=== PATIENT | female | born 1960 | race Caucasian/White ===

== ENCOUNTER 2016-07-04 23:22 | Inpatient (IN) | payer OTHER ==
--- NOTE | ~2016-07-04 | CO ---
Unit #: [id number] #: [id number] Patient: ROSETTE CASTILLO [id number] [address] [address] [id number] I MR#: [id number] NAME: ROSETTE CASTILLO ROOM: 242 Age: 55 Sex: F Admission Date: 07/05/2016 : 1960 Attending Physician: Jyoti Johnson M.D. Primary Care Physician: Frank May M.D. Consultation Date: 07/08/2016 CONSULTATION REPORT REASON FOR CONSULT Acute kidney injury on probable chronic kidney disease. HISTORY OF PRESENT ILLNESS Ms. Castillo is a 55-year-old female who initially presented on 07/05/2016 with complaints of shortness of breath and leg swelling. The patient is currently being treated for COPD exacerbation and lower extremity cellulitis. There has also been some concern about congestive heart failure and she has been getting IV Lasix. We were asked to see for worsening kidney function. She is noted to be on vancomycin and Zosyn and again has been receiving IV Lasix. The patient did report some preadmission diarrhea that has gotten better since she has been here. Overall, she thinks her breathing is better. She is a smoker. She denies any preadmission NSAID use. No history of kidney stones. She was apparently out of her diabetic and blood pressure medicine for the last two years before being restarted here. No flank pain. She does complain of some mild dysuria. PAST MEDICAL HISTORY Significant for: 1. History of type 2 diabetes. 2. Hypertension. 3. Hyperlipidemia. 4. COPD. 5. Tobacco abuse. 6. Obstructive sleep apnea. 7. Hypothyroidism. 8. Mild coronary artery disease. 9. Restless leg syndrome. 10. Psoriasis. PAST SURGICAL HISTORY 1. Breast abscess. 2. Knee surgery. 3. . CURRENT MEDICATIONS 1. Tessalon Perles t.i.d. 2. Vancomycin per Pharmacy dosing. 3. Zoloft 50 mg h.s. 4. Trazodone 50 mg h.s. 5. Vistaril 25 mg t.i.d. 6. Lovenox 30 mg subcu daily. 7. Lasix 40 mg IV b.i.d. Unit #: [id number] #: [id number] Patient: ROSETTE ACSTILLO 8. Potassium chloride 20 mEq b.i.d. 9. DuoNeb inhaler. 10. Pulmicort inhaler. 11. Pepcid 20 mg daily. 12. Lac-Hydrin lotion. 13. Solu-Medrol 40 mg IV q.24 h. 14. Desenex topical. 15. Sliding scale insulin. 16. Zosyn 3.375 grams IV q.8 h. 17. And p.r.n.'s. ALLERGIES 1. Pyrazoles. 2. NSAIDs. 3. Propoxyphene. 4. Aspirin. 5. Salicylates. 6. Ibuprofen. 7. Latex. SOCIAL HISTORY She smokes at least one-half pack of cigarettes per day. She denies any alcohol abuse. She denies any drug use in the past. FAMILY HISTORY The patient says that her grandmother was born with one kidney but otherwise no family history of kidney disease or anyone requiring dialysis. REVIEW OF SYSTEMS A complete 12-point review of systems was completed with the above findings. In addition, she denies any headaches or dizziness. No nosebleeds, sore throat or earache. No chest pain or palpitations. Some cough, no hemoptysis. No nausea or vomiting but did have preadmission diarrhea. No bright red blood per rectum or melena. No hematuria. Her lower extremity swelling has improved. She does have a psoriasis rash. No flank pain. No night sweats or hot flashes. No intolerance to heat or cold. No bleeding issues. Unless otherwise indicated, the review of systems was negative. PHYSICAL EXAMINATION VITAL SIGNS: Afebrile, pulse 49, respiratory rate 17, blood pressure 112/43. I's and O's are negative by 7 liters. GENERAL: This is a pleasant 55-year-old female who is alert and oriented times 3 in no acute distress. HEENT: Head is atraumatic, normocephalic. Eyes show pink conjunctivae with no scleral icterus. No nasal drainage or nosebleed. Oropharynx is dry. She does have poor dentition. NECK: No rigidity, no JVD. HEART: Bradycardic and appears regular with no significant murmur or rub appreciated. LUNGS: Clear anteriorly with no wheezing or rhonchi today. Breathing is nonlabored. ABDOMEN: Soft, mild diffuse tenderness. There are bowel sounds present. No masses appreciated. EXTREMITIES: She does have trace to +1 lower extremity and foot edema that is showing some early wrinkling. No cyanosis. Skin is dry. She does have psoriatic changes. She does have erythema on the lower shins, Unit #: [id number] #: [id number] Patient: ROSETTE CASTILLO more so on the left than the right with tenderness and warmth. GENITOURINARY: Newton catheter is in place with nonbloody urine. MUSCULOSKELETAL: No CVA tenderness to palpation. NEUROLOGIC: Cranial nerves II-XII are grossly intact with some generalized weakness but no focal deficits. LYMPHATICS: There is no neck cervical lymphadenopathy. PSYCHIATRIC: Mood appears depressed. Affect is somewhat flat. DIAGNOSTIC STUDIES LABORATORY: Chemistry today sodium 135, potassium 4.7, chloride 92, bicarb 29, glucose 243, BUN 55, creatinine up to 2.3. Vancomycin level was 23.6. BNP just 90. CBC was noteworthy for hemoglobin of 10.2. No peripheral eosinophilia. Urinalysis done last night did show 10-25 wbc's with some hyaline casts. There was no protein or blood. Yesterday's chemistry noteworthy for a high potassium of 5.9. Procalcitonin on admission was just 0.08. Liver function tests were unremarkable with an albumin of 3.3. Blood cultures are negative thus far. Hemoglobin A1c 7.1. Admission creatinine was 1.5 with an albumin of 4.1. Review of old labs shows a creatinine of 1.1 from December 2013. Previous urinalyses here have some intermittent 1+ proteinuria with mostly negative tests for blood. I did find a CT scan of the abdomen and pelvis from September 2013 that showed unremarkable kidneys. IMAGING: Chest x-ray on admission showed clear lungs except for some granulomatous calcification. ASSESSMENT AND PLAN 1. Acute on probable chronic kidney disease stage 3. Patient may very well have had some progression of her kidney disease due to not taking any medications for the last few years. Fortunately, her hemoglobin A1c looks good at 7.1. We will hold off on any further imaging as she had a CT scan noted as above. Her acute kidney injury looks to be prerenal in nature from over-diuresis with Lasix which we will stop. She is also on some vancomycin which may be causing some issues and we will change her over to daptomycin. In addition, I will send off urine studies for eosinophils as she did have some wbc's in her urine and is noted to be on vancomycin and Zosyn. We will recheck labs in the morning after making these changes. 2. Hyperkalemia. We will be stopping her potassium chloride and it has improved since yesterday. 3. Edema. The patient is relatively immobile and I do think we need to check Dopplers which I will order. She says that her swelling is much better and she certainly diuresed over 7 liters just in the last 24 hours. With her worsening kidney function, we will hold her Lasix for the present time. I will check a TSH level. 4. Cellulitis. We will change her antibiotics to daptomycin and Zosyn and stop her vancomycin. 5. Type 2 diabetes with a decent hemoglobin A1c. 6. History of hypertension on no medications. 7. Questionable congestive heart failure. 2D echo just showed some abnormal diastolic dysfunction and normal function of all valves. With her BNP only being 90 and a clear chest x-ray, I think her breathing issues are more COPD related. 8. Chronic obstructive pulmonary disease with continued tobacco abuse. Unit #: [id number] #: [id number] Patient: ROSETTE CASTILLO 9. Psoriasis being followed by Dermatology. I would like to thank Dr. Jonas for this consult and the opportunity to participate in the evaluation of Ms. Castillo. Dictated by... Delonte Markham Jr., M.D. YEISON/earlene TD: 07/08/2016 21:34 JOB #: [id number] CONSULTATION REPORT Page 1 of 1 X Delonte Markham MD CONSULTATION REPORT
--- NOTE | ~2016-07-04 | CR72 ---
[facility] A Service of [facility] RADIOLOGY TEXT RESULTS PATIENT: ROSETTE CASTILLO LOCATION: [facility] 242-01 : 58 UNIT #: [id number] AGE: [address]: Jyoti Johnson MD SEX: F ORDER DR: [id number] [facility] [address] [facility]. [place], [place] [address] [id number] I MR#: [id number] Acc #: [id number] NAME: ROSETTE CASTILLO : 1960 SEX: F STUDY DATE/TIME: 07/05/2016 01:19 UNIT: CEDOF ROOM: 39624 STUDY DESCRIPTION: CR Chest Single View Portable Attending Physician: Jyoti Johnson M.D. Ordering Physician: Ed Doctor [id number] [facility] Primary Care Physician: Frank May M.D. MEDICAL IMAGING REPORT This report is preliminary unless electronic signature is present EXAM Portable chest 0119 hours INDICATIONS Cough, shortness of air and lower leg edema for 2 days. History of smoking. FINDINGS AP portable chest is compared with 10/17/2015. Cardiac and mediastinal contours are normal. Lungs are clear except for granulomatous calcification. No pneumothorax. IMPRESSION No active disease. Dictated by... Dennis Montaño Jr., M.D. THIS IS AN ELECTRONICALLY VERIFIED REPORT Dennis Montaño Jr., M.D. at 07/06/2016 5:52 AM ARTI/madeline TD: 07/05/2016 06:25 JOB #: [id number] MEDICAL IMAGING REPORT Page 1 of 1 COPY
--- NOTE | ~2016-07-04 | US84 ---
[id number] [facility] [address]. [place], [place] [address] [id number] I MR#: [id number] Acc #: [id number] NAME: ROSETTE CASTILLO : 1960 SEX: F STUDY DATE/TIME: 07/08/2016 15:48 UNIT: C2A ROOM: 242 STUDY DESCRIPTION: US LE Veins Complete Cm Stdy Attending Physician: Jyoti Johnson M.D. Ordering Physician: Delonte Markham Jr., M.D. Primary Care Physician: Frank May M.D. MEDICAL IMAGING REPORT This report is preliminary unless electronic signature is present EXAM Lower extremity ultrasound for DVT, 07/08/2016 INDICATIONS 55-year-old female with shortness of air and swelling of both lower extremities for a week. TECHNIQUE Lanier-scale color Doppler and spectral analysis of both lower extremities was performed. COMPARISON 11/26/2011 FINDINGS Examination is negative. No DVT in either lower extremity. IMPRESSION No DVT in either lower extremity. Dictated by... Zaid Ruiz M.D. THIS IS AN ELECTRONICALLY VERIFIED REPORT Zaid Ruiz M.D. at 07/08/2016 10:28 PM Nadir TD: 07/08/2016 19:54 JOB #: [id number] MEDICAL IMAGING REPORT Page 1 of 1 COPY
--- NOTE | ~2016-07-04 | EKG ---
PATIENT: ROSETTE CASTILLO UNIT #: [id number] Ventricular Rate: 91 BPM Atrial Rate: 91 BPM P-R Interval: 124 ms QRS Duration: 72 ms Q-T Interval: 372 ms QTC Calculation(Bezet): 457 ms P Alamo: 54 degrees Calculated R Alamo: 42 degrees Calculated T Alamo: 92 degrees Diagnosis Line: Normal sinus rhythm Diagnosis Line: T wave abnormality, consider anterior ischemia Diagnosis Line: Abnormal ECG Diagnosis Line: No previous ECGs available Diagnosis Line: Confirmed by SONALI SHETH MD ([id number]) on 07/07/2016 Diagnosis Line: 10:23:42 AM INTERPRETING MD: DOMENIC ALFORD
--- NOTE | ~2016-07-04 | HP ---
Unit #: [id number] #: [id number] Patient: ROSETTE CASTILLO 150517 [address] [address] [id number] I MR#: [id number] NAME: ROSETTE CASTILLO ROOM: 242 Age: 55 Sex: F Admission Date: 07/05/2016 : 1960 Attending Physician: Jyoti Johnson M.D. Primary Care Physician: Frank May M.D. HISTORY AND PHYSICAL ADMISSION DIAGNOSES 1. Acute exacerbation of chronic obstructive pulmonary disease. 2. Bilateral lower extremity cellulitis. 3. Diabetes. 4. Dyslipidemia. 5. Obstructive sleep apnea. 6. Psoriasis. 7. History of coronary artery disease. 8. Chronic kidney disease. HISTORY OF PRESENT ILLNESS Ms. Castillo is a 55-year-old female, patient of Dr. May, who comes to the emergency room with the complaints of increased shortness of air/dyspnea with some subjective fever and chills along with some yellowish sputum. The patient also complains of lower extremity swelling and erythema. Patient is the one with the multiple medical issues in the past including coronary artery disease, diabetes, dyslipidemia, hypertension, COPD, psoriasis, depression, anxiety and hypothyroidism in the past and also obstructive sleep apnea and obesity. Patient tells me that she also wants to go to a [facility] from this hospitalization secondary to being left at home frequently by her daughter who apparently has the ill children and has to travel to [place] frequently. Patient currently denies any other problems, denies any active chest pain, denies any headache or dizziness, denies any nausea, vomiting, diarrhea or abdominal pain, denies any dysuria symptoms, denies any syncopal episodes. REVIEW OF SYSTEMS A 12-point review of systems on this patient was basically negative except as above. PAST MEDICAL HISTORY Past medical history is significant for as above in HPI. PAST SURGICAL HISTORY Past surgical history is significant for: 1. I/D of the abscess in the right breast. 2. Right knee surgery. 3. . HOME MEDICATIONS Apparently she was not taking any medications secondary to losing the insurance recently but now she has Passport. Unit #: [id number] #: [id number] Patient: ROSETTE CASTILLO ALLERGIES From old chart the allergies include propoxyphene, salicylates, pyrazoles, NSAIDs, aspirin, latex and ibuprofen. SOCIAL HISTORY She has been an active smoker throughout her life, denies any alcohol or illicit drugs. FAMILY HISTORY Significant for diabetes. PHYSICAL EXAMINATION GENERAL: On the physical exam patient is a 55-year-old female not in acute distress. VITAL SIGNS: BP 121/45, heart rate 55, respirations 16, temperature 99. HEENT: Head is atraumatic. Pupils equal, round and reactive to light and accommodation. Extraocular muscles intact. Oropharynx clear. NECK: Supple. No mass. No JVD. No bruits. CHEST: Diminished bilaterally. CARDIOVASCULAR EXAM: S1, S2. No murmurs. ABDOMEN: Abdomen is soft, obese, nontender and nondistended. Bowel sounds are diminished. EXTREMITIES: Lower extremities with significant bilateral swelling with some pitting edema and erythema. SKIN: Skin is significant for patchy dermatitis consistent with her history of psoriasis. NEUROLOGIC: Neurologically the patient is alert and oriented and answering questions appropriately. No focal deficits. PSYCHIATRIC: She is anxious, in tears, requesting to go to a [facility] after the hospitalization. DIAGNOSTIC STUDIES LABORATORY: Chemistry significant for BUN and creatinine 31 and 1.5, blood glucose 195. Set of cardiac enzymes negative. White count 12,000 and hemoglobin and hematocrit 11.1 and 35. IMAGING: Chest x-ray on admission no active disease. ASSESSMENT AND PLAN 1. Acute exacerbation of chronic obstructive pulmonary disease: Start on DuoNeb, Pulmicort. Ask Pulmonology to see. 2. Bilateral lower extremity cellulitis: Will start on IV Zosyn and vancomycin, ask pharmacy to dose. 3. Diabetes, covered with low sliding scale: Check hemoglobin A1C. 4. History of dyslipidemia in the past. 5. Obstructive sleep apnea: Continue per Pulmonary. 6. Psoriasis: Will get Dr. Roman for evaluation. 7. History of coronary artery disease: Would start her on aspirin but I cannot do aspirin because she is allergic to it. Currently chest pain free, stable hemodynamics. Consider Cardiology evaluation. Set of cardiac enzymes negative. 8. Chronic kidney disease, looks like around the baseline. 9. GI and DVT prophylaxis: Start on Pepcid and continue Lovenox. Unit #: [id number] #: [id number] Patient: ROSETTE CASTILLO Dictated by Lou Santana/tianna TD: 07/05/2016 20:42 JOB #: [id number] HISTORY AND PHYSICAL Page 1 of 1 X Reginald Jonas MD HISTORY AND PHYSICAL
--- NOTE | ~2016-07-04 | DS ---
Unit #: [id number] #: [id number] Patient: ROSETTE CASTILLO [id number] [address] [address] [id number] I MR#: [id number] NAME: ROSETTE CASTILLO ROOM: 238 Age: 55 Sex: F Admission Date: 07/05/2016 : 1960 Discharge Date: 07/12/2016 Attending Physician: Jyoti Johnson M.D. Primary Care Physician: Frank May M.D. DISCHARGE SUMMARY DISCHARGE DIAGNOSES 1. Lower extremity cellulitis, status post completion of IV antibiotics for seven days. Afebrile, white count unremarkable. Stable to be discharged. 2. Acute exacerbation of chronic obstructive pulmonary disease, resolving, status post evaluation per Pulmonary. Stable. 3. Acute kidney injury on chronic kidney disease, status post evaluation per Nephrology. Stable. Okay to be discharged. 4. Diabetes. 5. Dyslipidemia. 6. History of psoriasis. 7. History of coronary artery disease. DISCHARGE MEDICATIONS 1. Combivent inhaler q.4 hours p.r.n. for shortness of air. 2. Pulmicort inhaler b.i.d. 3. Prednisone 20 mg daily. 4. Triamcinolone topically to the trunk and extremities p.r.n. 5. Tylenol p.r.n. 6. Hydrocortisone cream topically daily p.r.n. to the rash on the face. 7. Lovenox 30 mg subcutaneous daily. 8. Zoloft 50 mg p.o. at bedtime. 9. Desyrel 50 mg at bedtime. 10. Zofran 4 p.o. q.4 p.r.n. for nausea. 11. Desenex topically to bilateral breast folds b.i.d. 12. Tessalon Perles p.r.n. for cough. 13. Vistaril 25 mg p.o. t.i.d. 14. Ammonium lactate topically to the rash on the feet and ankles daily. 15. Sliding scale insulin. 16. Pepcid 20 mg daily. 17. [place]urtis 5/325 at 1 or 2 tablets q.4 hours p.r.n. for pain. DISPOSITION Going to [facility]. Follow up with Dr. Leach there. CONSULTS DURING THIS HOSPITAL STAY 1. Dr. Gates, Pulmonary. 2. Dr. Brooke, Psychiatry. 3. Dr. Markham, Nephrology. DIAGNOSTIC STUDIES LABORATORY: Blood culture negative. Urine culture negative. IMAGING: Chest x-ray unremarkable. Lower extremity ultrasound negative Unit #: [id number] #: [id number] Patient: ROSETTE CASTILLO for DVT. Renal ultrasound unremarkable. HISTORY OF PRESENT HOSPITAL STAY Please refer to History and Physical done by me for initial presentation on this female. ACTIVE PROBLEMS DIAGNOSED Lower extremity cellulitis. Patient was treated with IV Zosyn and daptomycin for seven days. Currently afebrile. Clinically erythema is resolved. Still has the lower extremity swelling, but this is chronic. Stable to be discharged. Acute exacerbation of COPD. Continue bronchodilators and continue p.o. steroids. Outpatient followup with Pulmonary. Acute kidney injury on chronic kidney disease, discharge date BUN and creatinine 66 and 2. Stable from kidney standpoint. Outpatient followup with Nephrology. Diabetes, covered with sliding scale. Dyslipidemia and history of coronary artery disease, stable. History of psoriasis. Continue topical management as above in discharge med rec. Depression, status post evaluation per Psychiatry. Continue current medications as above. Dictated by... Lou Santana/crystal TD: 07/12/2016 20:58 JOB #: [id number] DISCHARGE SUMMARY Page 1 of 1 X Reginald Jonas MD X DISCHARGE SUMMARY
--- NOTE | ~2016-07-04 | US77 ---
[facility] A Service of [facility] RADIOLOGY TEXT RESULTS PATIENT: ROSETTE CASTILLO LOCATION: [facility] 238 : 59 UNIT #: [id number] AGE: [address]: Jyoti Johnson MD SEX: F ORDER DR: [id number] [facility] [address] [facility]. [place], [place] [address] [id number] I MR#: [id number] Acc #: [id number] NAME: ROSETTE CASTILLO : 1960 SEX: F STUDY DATE/TIME: 07/11/2016 10:54 UNIT: A ROOM: 238 STUDY DESCRIPTION: US Kidney Bilateral Complete Attending Physician: Jyoti Johnson M.D. Ordering Physician: Delonte Markham Jr., M.D. Primary Care Physician: Frank May M.D. MEDICAL IMAGING REPORT This report is preliminary unless electronic signature is present EXAM Bilateral renal ultrasound Date: 07/11/2016 HISTORY Acute renal failure. BUN 70. Creatinine 2.1. GFR 25. COMPARISON Bilateral renal ultrasound 06/07/2014. FINDINGS The right kidney measures 8.4 x 4.1 x 3.9 cm. Left kidney measures 7.4 x 3.8 x 3.9 cm. Both kidneys maintain normal cortical thickness and cortical echotexture. No shadowing renal stone, hydronephrosis or hydroureter is seen. Urinary bladder is not visualized, as it is decompressed. IMPRESSION The left kidney is slightly smaller than the right but is similar appearance to the 2014 examination. Otherwise, the kidneys maintain normal cortical thickness and echotexture. No renal mass lesion, shadowing stone or hydronephrosis is seen. Urinary bladder is decompressed. Dictated by... Evelina Pena M.D. THIS IS AN ELECTRONICALLY VERIFIED REPORT [facility] A Service of [facility] RADIOLOGY TEXT RESULTS PATIENT: ROSETTE CASTILLO LOCATION: [facility] : 58 UNIT #: [id number] AGE: [address]: Jyoti Johnson MD SEX: F ORDER DR: Evelina Pena M.D. at 07/14/2016 8:30 AM JOSE/lilly TD: 07/11/2016 15:30 JOB #: [id number] MEDICAL IMAGING REPORT Page 1 of 1 COPY
--- NOTE | ~2016-07-04 | CO ---
Unit #: [id number] #: [id number] Patient: ROSETTE CASTILLO [id number] [facility] [address] [address] [id number] I MR#: [id number] NAME: ROSETTE CASTILLO ROOM: 238 Age: 55 Sex: F Admission Date: 07/05/2016 : 1960 Attending Physician: Jyoti Johnson M.D. Primary Care Physician: Frank May M.D. Consultation Date: 07/11/2016 CONSULTATION REPORT REASON FOR CONSULTATION Followup. DISCUSSION Ms. Rosette Castillo is a 55-year-old female seen in room 238, bed 1 on 07/11/16 at [facility]. Patient reported that she is feeling so-so. Patient sad and depressed. Flat affect, but denied any thoughts of harming self or others. Denied any psychotic symptoms. Compliant with medication. Patient is currently on Zoloft and Desyrel. No side effects from medication. Patient's vital signs: 98.6, 50, 20, 129/53, and oxygen saturation 96%. REVIEW OF SYSTEMS Complete review of systems unremarkable. MENTAL STATUS EXAMINATION VITAL SIGNS: Please see above. GENERAL APPEARANCE: Patient dressed casually. ATTENTION SPAN AND CONCENTRATION: Fair. SPEECH: Slow in short sentences. ORIENTATION: Oriented in place and person. MOOD AND AFFECT: Sad, depressed. THOUGHT PROCESS: Coherent. THOUGHT CONTENT: Patient denied any thoughts of harming self or others. Denied any psychotic symptoms. RECENT AND REMOTE MEMORY: Fair. LANGUAGE: Intact. FUND OF KNOWLEDGE: Fair. INSIGHT AND JUDGEMENT: Fair to slightly impaired. DIAGNOSES PSYCHIATRIC 1. Major depressive disorder, recurrent, moderate, F33.2. 2. Anxiety disorder, NOS, F40.01. ASSESSMENT/PLAN 1. Supportive psychotherapy and psychoeducation provided to patient. 2. Educated about benefits and side effects of medication and course and prognosis of illness. 3. At this time, continue with current medication, but we will continue to evaluate and make further adjustment of medication if needed. Please feel free to call if any questions. Telephone number . Unit #: [id number] #: [id number] Patient: ROSETTE CASTILLO Dictated by... Lou Monae TD: 07/12/2016 08:38 JOB #: [id number] CONSULTATION REPORT Page 1 of 1 X Bola Brooke MD CONSULTATION REPORT
--- NOTE | ~2016-07-04 | CO ---
Unit #: [id number] #: [id number] Patient: ROSETTE CASTILLO [id number] [place] [id number] [place] [address] [id number] I MR#: [id number] NAME: ROSETTE CASTILLO ROOM: 238 Age: 55 Sex: F Admission Date: 07/05/2016 : 1960 Attending Physician: Jyoti Johnson M.D. Primary Care Physician: Frank May M.D. Consultation Date: 07/12/2016 CONSULTATION REPORT REASON FOR CONSULTATION Followup. DISCUSSION Ms. Rosette Silva is a 55-year-old white female, seen in room 238, bed 1 on 07/12/2016 at [facility]. The patient reports that she is feeling better, but sad, depressed, withdrawn, and isolative. The patient is compliant with medication, diagnosed with major depressive disorder and anxiety disorder, tolerating medication fairly well. The patient is still withdrawn, flat, sad and dysphoric mood. The patient's vital signs; temperature 98.1, pulse 63, respirations 16, blood pressure 117/74, oxygen saturation 95%. REVIEW OF SYSTEMS A complete review of systems is unremarkable except as mentioned above. MENTAL STATUS EXAMINATION Vital signs; please see above. General appearance; the patient dressed casually, lying comfortably in bed. Attention span and concentration, fair. Speech; regular rate and coherent. Oriented in time, place, and person. Mood and affect; sad, depressed, and flat. Answered question in the short sentences. Thought process, coherent. Thought content; the patient denied any thoughts of harming self or others, but sad and depressed. Denied any auditory or visual hallucination. Recent and remote memory, fair. Language, intact. Fund of knowledge, fair. Insight and judgment, fair to slightly impaired. DIAGNOSES Psychiatric: Major depressive disorder, recurrent, [id number], F33.2; anxiety disorder, not otherwise specified, F40.01. ASSESSMENT AND PLAN 1. Supportive psychotherapy and psychoeducation provided to the patient. 2. Educated about benefits and side effects of medication and course and prognosis of illness. 3. Advised to continue with current medication. If needed, consider further adjustment of medication. Dictated by... Bola Brooke M.D. ISRAEL/marielle Unit #: [id number] #: [id number] Patient: LOBITO CASTILLOBERLY TD: 07/12/2016 17:46 JOB #: [id number] CONSULTATION REPORT Page 1 of 1 X Bola Brooke MD X CONSULTATION REPORT
--- NOTE | ~2016-07-04 | CO ---
Unit #: [id number] #: [id number] Patient: ROSETTE CASTILLO [id number] [address] [address] [id number] I MR#: [id number] NAME: ROSETTE CASTILLO ROOM: 242 Age: 55 Sex: F Admission Date: 07/05/2016 : 1960 Attending Physician: Jyoti Johnson M.D. Primary Care Physician: Frank May M.D. CONSULTATION REPORT REASON FOR CONSULTATION COPD exacerbation. CHIEF COMPLAINT Shortness of breath. 55-year-old female with past medical history of COPD, likely obstructive sleep apnea, and chronic kidney disease, dyslipidemia, diabetes mellitus who presented to the emergency room complaining of shortness of breath, fever, chills and rigors and increasing sputum production. Has left lower extremity rash also. I am seeing her at the bedside. She denies any nausea, vomiting, diarrhea. REVIEW OF SYSTEMS Positive for pallor. No edema, no cyanosis, no jaundice. The rest as per History of Present Illness. The rest of the twelve point review of systems has been reviewed and is negative. PHYSICAL EXAMINATION VITAL SIGNS: Temperature 98, pulse 67, respirations 12, blood pressure 137/70. NEUROLOGICAL: Awake, alert, oriented. No neuro deficit. HEENT: PERRLA. NECK: Supple. No JVD. CHEST: Bilateral air entry, bilateral mild rhonchi. GI: Nontender, soft. Bowel sounds positive. EXTREMITIES: Positive edema and positive rash in the lower extremities. PAST MEDICAL HISTORY As described above. SURGICAL HISTORY 1. I and D. 2. Right knee surgery. MEDICATIONS As per APR, has been reviewed. SOCIAL HISTORY Active smoker, one pack per day. Denies alcohol or drug abuse. DIAGNOSTIC STUDIES Unit #: [id number] #: [id number] Patient: ROSETTE CASTILLO IMAGING: Chest x-ray - no active disease. ASSESSMENT AND PLAN 1. Acute exacerbation of chronic obstructive pulmonary disease. 2. Acute bronchitis. 3. Bilateral lower extremity cellulitis. 4. Diabetes mellitus. 5. Obstructive sleep apnea. 6. Arthritis. 7. History of coronary artery disease. 8. Chronic kidney disease. Plan is to continue patient's current antibiotics. As per family, she is already started on vancomycin and Zosyn for cellulitis. Continue IV steroids, bronchodilators. GI and DVT prophylaxis. We will continue to monitor. Smoking cessation counseling has been done. The patient will need sleep study as an outpatient. We will continue to follow. Please see orders for detailed plan. Thank you very much for this consultation. Dictated by... Lou Pringle TD: 07/07/2016 05:22 JOB #: [id number] CONSULTATION REPORT Page 1 of 1 X Lalo Gates MD X CONSULTATION REPORT
--- NOTE | ~2016-07-04 | CO ---
Unit #: [id number] #: [id number] Patient: ROSETTE CASTILLO 191375 [facility] [address] [facility]. [place], [place] [address] [id number] I MR#: [id number] NAME: ROSETTE CASTILLO ROOM: 242 Age: 55 Sex: F Admission Date: 07/05/2016 : 1960 Attending Physician: Jyoti Johnson M.D. Primary Care Physician: Frank May M.D. Consultation Date: 07/07/2016 CONSULTATION REPORT REASON FOR CONSULTATION Depression and anxiety. HISTORY OF PRESENT ILLNESS Ms. Rosette Castillo is a 55-year-old white female seen in room 242, bed 1 on 07/07/2016 at [facility]. The patient reported that she has a history of depression, anxiety, and was on Valium in the past. The patient reported currently on no psychotropic medications; however, patient was tearful, sad, dysphoric during interview. Patient denied any suicidal or homicidal ideations. Denied any psychotic symptoms but reported having depression and anxiety. The patient was dressed causally in hospital attire, sitting comfortably in bed. Patient's vital signs are 98.3, 55, 16, 123/62, oxygen saturation 94. Patient was admitted on 07/05/2016 with a diagnosis of acute exacerbation of COPD. Patient has a history of obstructive sleep apnea, psoriasis, diabetes. Patient was admitted with shortness of breath. Patient reported that her depression and anxiety is worse. Would like to go back on the medication. PAST PSYCHIATRIC HISTORY Remarkable for history of depression and anxiety, currently on no medication. Was treated in the past with acquired Valium. No history of any suicide attempt. MEDICAL HISTORY Patient has a history of acute exacerbation of COPD, bilateral lower extremity cellulitis, diabetes, dyslipidemia, obstructive sleep apnea, psoriasis, history of coronary artery disease, chronic kidney disease. MEDICATIONS Patient is on Lovenox, Tessalon Perles, Solu-Medrol 40 mg q. 24 hours, Combivent, NovoLog, Klor-Con, Lovenox. FAMILY HISTORY AND SOCIAL HISTORY Patient does report good support from family but no history of abuse. No history of any substance abuse. Family history unremarkable. ALLERGIES Propoxyphene and salicylate, pyrazoles, NSAIDs, aspirin, latex and ibuprofen. REVIEW OF SYSTEMS Complete review of system is unremarkable except as mentioned above. MENTAL STATUS EXAMINATION Unit #: [id number] #: [id number] Patient: ROSETTE CASTILLO VITAL SIGNS: 98.3, 55, 16, 123/62, oxygen saturation 94%. GENERAL APPEARANCE: Patient dressed casually. Patient was sitting in a propped up position in bed, dressed in hospital attire. ATTENTION SPAN AND CONCENTRATION: Fair. SPEECH: Irregular rate. ORIENTATION: Oriented to time, place and person. MOOD AND AFFECT: Labile, tearful, anxious. THOUGHT PROCESS: Circumstantial. THOUGHT CONTENT: Patient denied any thoughts of harming self or others. Denied any hallucination. RECENT AND REMOTE MEMORY: Fair. LANGUAGE: Intact. FUND OF KNOWLEDGE: Fair. INSIGHT AND JUDGMENT: Fair to slightly impaired. DIAGNOSIS Psychiatric: 1. Major depressive disorder, recurrent, moderate, F33.2. 2. Anxiety disorder, NOS, F40.01. Secondary diagnosis: Deferred. Medical diagnosis: Please refer to H and P. Stressors: Psychosocial stressors. ASSESSMENT/PLAN 1. Supportive psychotherapy, psychoeducation provided to patient. 2. Educated about benefits and side effects of medications and course and prognosis of illness. 3. Advised to start patient on Zoloft for mood symptom, Vistaril for anxiety, and trazodone for sleep. We will closely monitor. If needed, consider further adjustment of medication. Will continue to follow. Please feel free to call with any questions. Telephone number [phone]. Dictated by... Lou Monae/shad TD: 07/08/2016 08:40 JOB #: [id number] CONSULTATION REPORT Page 1 of 1 X Bola Brooke MD X CONSULTATION REPORT
--- NOTE | ~2016-07-04 | CO ---
Unit #: [id number] #: [id number] Patient: ROSETTE CASTILLO [id number] [facility] [address] [id number] I MR#: [id number] NAME: ROSETTE CASTILLO ROOM: 238 Age: 55 Sex: F Admission Date: 07/05/2016 : 1960 Attending Physician: Jyoti Johnson M.D. Primary Care Physician: Frank May M.D. Consultation Date: 07/08/2016 CONSULTATION REPORT REASON FOR CONSULTATION Followup. DISCUSSION Ms. Rosette Silva is a 55-year-old white female, seen in room 242, bed 1 on 07/08/2016 at [facility]. The patient reports that she is feeling good. Medication is helping her. The patient is on trazodone, Zoloft, and Vistaril. The patient was able to sleep good. Denied any thoughts of harming self or others, or any psychotic symptom. The patient's vital signs; temperature 97.7, pulse 50, respirations 16, blood pressure 135/44, oxygen saturation 96%. REVIEW OF SYSTEMS A complete review of systems is unremarkable. MENTAL STATUS EXAMINATION Vital signs; please see above. General appearance; the patient dressed casually, lying comfortably in bed. Attention span and concentration, fair. Speech; regular rate and coherent. Oriented in time, place, and person. Mood and affect were sad and dysphoric, but able to smile. Thought process, coherent. Thought content; the patient denied any thoughts of harming self or others, or any psychotic symptom. Recent and remote memory, fair. Language, intact. Fund of knowledge, fair. Insight and judgment, fair to slightly impaired. DIAGNOSES Psychiatric: Major depressive disorder, recurrent, moderate, F33.2; anxiety disorder, not otherwise specified, F40.01. ASSESSMENT AND PLAN 1. Supportive psychotherapy and psychoeducation provided to the patient. 2. Educated about benefits and side effects of medication and course and prognosis of illness. 3. Advised to continue with current medication. If needed, consider further adjustment of medication. Please feel free to call if any questions, telephone #[phone]. Dictated by... Bola Brooke M.D. ISRAEL/marielle TD: 07/09/2016 14:05 Unit #: [id number] #: [id number] Patient: ROSETTE CASTILLO JOB #: [id number] CONSULTATION REPORT Page 1 of 1 X Bola Brooke MD CONSULTATION REPORT
[~2016-07-04 23:22] MED LIST: ACETAMINOPHEN PO; ALBUTEROL17 G1; ALBUTEROL17 G1 IH; ALBUTEROL17 GM IH; AMLODIPINE BESYL5 MG PO; ASPIRIN PO; ATRAC-TAIN142 GM EXT; AUGMENTIN PO; BACTRIM DS TABL1 TA1 PO; BACTRIM DS TABL1 TAB PO; BACTROBAN15 GM TOP; BENZONATATE PO; CELEXA PO; CELEXA20 MG PO; CITALOPRAM HBR40 MG; CITALOPRAM HBR40 MG PO; CLOPIDOGREL75 MG PO; COLACE PO; COMBIVENT U/D3 ML INH; COREG PO; DESYREL50 M1 DOB; DETROL2 M1 PO; DIAZEPAM PO; DIAZEPAM10 MG PO; DICLOFENAC PO; ENABLEX7.5 MG; ENABLEX7.5 MG PO; FENOFIBRATE160 MG PO; FENOGLIDE40 MG PO; FISH OIL 1,001000 MG PO; FLEXERIL10 MG PO; GABAPENTIN100 M1; GABAPENTIN100 M1 PO; HIBICLENS 4% L120 ML TOP; HUMALOG MIX 75/10 ML SUBQ; HUMALOG MIX 75/23 ML SUBQ; HUMULIN 70/30 V10 ML; HUMULIN 70100 UNIT/1 SUBQ; HUMULIN N100 U/ML SUBQ; HYDROCODON-ACE1 EAC1 PO; HYDROCODON-ACE1 EAC9 PO; HYDROGESIC 5/501 CAP; K-DUR20 ME1 PO; K-DUR20 ME2 PO; KEFLEX PO; KEFLEX500 MG PO; LANTUS100 U/ML SQ; LANTUS100 U/ML SUBQ; LASIX PO; LASIX20 MG PO; LEVAQUIN PO; LEVEMIR100 UNITS/ SUBQ; LEVOTHROID25 MCG PO; LEVOTHYROXINE25 MC1 PO; LIPITOR20 MG PO; LISINOPRIL PO; LISINOPRIL10 MG PO; LISINOPRIL20 MG PO; LORTAB 10/500 T1 TAB PO; LORTAB 5/500 TA1 TA1 PO; LORTAB 7.5-5001 TAB PO; MACROBID100 MG PO; MEDROL DOSE PACK; NITROGYLCERIN SUBLINGUAL; NORCO 7.5/325 T1 TAB PO; NORVASC PO; NOVOLIN 70/30 U13 M1; NOVOLIN 70/30 U13 ML INJ; NOVOLIN 70/30 V10 M1; NOVOLIN 70/30 V10 M1 SUBQ; NOVOLIN 70/30 V10 ML INJ; NOVOLOG100 UNITS/ SUBQ; OMEPRAZOLE20 M1 PO; OMEPRAZOLE20 M2; OMEPRAZOLE20 M2 PO; PHENERGAN PO; PHENERGAN25 MG PO; PLAVIX PO; POTASSIUM CHLO10 ME1 PO; PREDNISONE PO; PRILOSEC PO; PROTONIX PO; REGLAN10 MG PO; REMERON15 MG PO; SIMVASTATIN40 MG PO; SIMVASTATIN80 MG PO; SYMBICORT INH; SYNTHROID PO; SYNTHROID25 MCG PO; TRIAMCINOLONE A15 G3 EXT; TRIAMCINOLONE A15 G3 TOP; TRICOR PO; VICODIN 5/500 T1 TAB PO; WALGREENS; WATER PILL; ZITHROMAX PO; ZITHROMAX500 MG PO; ZOCOR PO; ZOCOR20 MG PO; ZOFRAN ODT4 MG PO; [UNRECOGNIZED DRUG - OTHER]; [UNRECOGNIZED DRUG - REMARK]; [UNRECOGNIZED DRUG - REMARK]
[2016-07-05 00:37] LABS: BASOPHIL# 0.1 X10e3 (0-0.3); BASOPHIL% 0.8 % (0-2.5); EOSINOPHIL# 0.1 X10e3 (0-0.7); EOSINOPHIL% 1.2 % (0.0-7.0); HEMOGLOBIN 11.1 gm/dL (12.0-16.0); LYMPHOCYTE# 1.6 X10e3 (1.0-3.5); LYMPHOCYTE% 13.7 % (17.0-45.0); MEAN CORPUSCULAR HEMOGLOBIN 26.7 PG (28-34); MEAN CORPUSCULAR HGB CONC 31.8 g/dL (30-36); MEAN PLATELET VOLUME 8.3 FL (6.5-11.5); MONOCYTE# 0.6 X10e3 (0-1.0); MONOCYTE% 4.9 % (3.0-12.0); NEUTROPHIL# 9.5 X10e3 (1.5-7.1); NEUTROPHIL% 79.4 % (40-75); PLATELET COUNT 361 X10e3 (140-420); RED BLOOD COUNT 4.16 X10e (3.90-5.30); RED CELL DISTRIBUTION WIDTH 14.9 % (11.0-15.5)
[2016-07-05 00:40] LABS: DIFF IND NO
[2016-07-05 01:01] LABS: ALBUMIN SERUM 4.1 g/dL (3.5-5.0); BILIRUBIN, DIRECT 0.1 mg/dL (0.0-0.2); BILIRUBIN,INDIRECT 0.3 mg/dL (0.0-0.9); BILIRUBIN,TOTAL 0.4 mg/dL (0.2-2.0); BUN/CREATININE RATIO 20.66; CALCIUM SERUM 9.3 mg/dL (8.4-10.2); CREATININE SERUM 1.5 mg/dL (0.6-1.4); GLOM FILT RATE Estimated 38.6 mL/min (>60); POTASSIUM 4.4 mmol/L (3.5-5.1); PROTEIN TOTAL SERUM 8.1 g/dL (6.0-8.3)
[2016-07-05 02:49] LABS: POC - CKMB 1.3 ng/mL (0.0-7.9); POC - TROPONIN <0.05 ng/mL (<=0.05)
[2016-07-05] MEDS ORDERED: NO MEDICATIONS (18:37)
[2016-07-06 05:53] LABS: HEMATOCRIT 28.8 % (35.0-45.0); HEMOGLOBIN 9.5 gm/dL (12.0-16.0); MEAN CELL VOLUME 83.5 FL (83-96); MEAN CORPUSCULAR HEMOGLOBIN 27.6 PG (28-34); MEAN PLATELET VOLUME 8.8 FL (6.5-11.5); RED BLOOD COUNT 3.45 X10e (3.90-5.30); RED CELL DISTRIBUTION WIDTH 14.8 % (11.0-15.5); WHITE BLOOD COUNT 6.4 X10e3 (4.0-10.5)
[2016-07-06 07:13] LABS: BUN/CREATININE RATIO 19.37; CALCIUM SERUM 8.6 mg/dL (8.4-10.2); CREATININE SERUM 1.6 mg/dL (0.6-1.4); GLOM FILT RATE Estimated 35.7 mL/min (>60); POTASSIUM 4.4 mmol/L (3.5-5.1)
[2016-07-06 13:55] LABS: ALBUMIN SERUM 3.3 g/dL (3.5-5.0); BILIRUBIN, DIRECT 0.1 mg/dL (0.0-0.2); BILIRUBIN,INDIRECT 0.3 mg/dL (0.0-0.9); BILIRUBIN,TOTAL 0.4 mg/dL (0.2-2.0); PROTEIN TOTAL SERUM 6.1 g/dL (6.0-8.3)
[2016-07-07 06:19] LABS: HEMATOCRIT 30.1 % (35.0-45.0); HEMOGLOBIN 9.8 gm/dL (12.0-16.0); MEAN CELL VOLUME 84.5 FL (83-96); MEAN CORPUSCULAR HEMOGLOBIN 27.5 PG (28-34); MEAN CORPUSCULAR HGB CONC 32.6 g/dL (30-36); MEAN PLATELET VOLUME 9.1 FL (6.5-11.5); RED BLOOD COUNT 3.56 X10e (3.90-5.30); RED CELL DISTRIBUTION WIDTH 14.4 % (11.0-15.5)
[2016-07-07 07:21] LABS: BUN/CREATININE RATIO 20.5; CALCIUM SERUM 8.7 mg/dL (8.4-10.2); GLOM FILT RATE Estimated 27.2 mL/min (>60)
[2016-07-07 07:25] LABS: POTASSIUM 5.9 mmol/L (3.5-5.1)
[2016-07-07 22:48] LABS: URINE APPEARANCE CLEAR; URINE BILIRUBIN NEG (NEG); URINE BLOOD NEG (NEG); URINE COLOR YELLOW; URINE GLUCOSE NEG (NEG); URINE KETONE NEG (NEG); URINE LEUKOCYTE ESTERASE 2+ (NEG); URINE NITRATE NEG (NEG); URINE PROTEIN NEG (NEG); URINE SPECIFIC GRAVITY 1.008 (1.003-1.035); URINE UROBILINOGEN 0.2 MG/DL (NEG)
[2016-07-07 22:53] LABS: URBCS1 AUWI 0-2 /[HPF] (0-2); URINE BACTERIA AUWI NEG (NEGATIVE); URINE SQUAMOUS EPITHELIAL CELL OCC /[HPF]
[2016-07-08 06:05] LABS: BASOPHIL% 0.5 % (0-2.5); EOSINOPHIL% 0.1 % (0.0-7.0); HEMATOCRIT 31.6 % (35.0-45.0); HEMOGLOBIN 10.2 gm/dL (12.0-16.0); LYMPHOCYTE# 0.8 X10e3 (1.0-3.5); LYMPHOCYTE% 12.1 % (17.0-45.0); MEAN CELL VOLUME 84.7 FL (83-96); MEAN CORPUSCULAR HEMOGLOBIN 27.5 PG (28-34); MEAN CORPUSCULAR HGB CONC 32.4 g/dL (30-36); MEAN PLATELET VOLUME 9.6 FL (6.5-11.5); MONOCYTE# 0.3 X10e3 (0-1.0); MONOCYTE% 4.3 % (3.0-12.0); NEUTROPHIL# 5.7 X10e3 (1.5-7.1); PLATELET COUNT 212 X10e3 (140-420); RED BLOOD COUNT 3.73 X10e (3.90-5.30); RED CELL DISTRIBUTION WIDTH 14.8 % (11.0-15.5); WHITE BLOOD COUNT 6.9 X10e3 (4.0-10.5)
[2016-07-08 06:19] LABS: DIFF IND NO
[2016-07-08 07:14] LABS: BUN/CREATININE RATIO 23.91; CALCIUM SERUM 8.6 mg/dL (8.4-10.2); CREATININE SERUM 2.3 mg/dL (0.6-1.4); POTASSIUM 4.7 mmol/L (3.5-5.1)
[2016-07-09 05:52] LABS: BASOPHIL% 0.1 % (0-2.5); HEMATOCRIT 30.9 % (35.0-45.0); HEMOGLOBIN 10.1 gm/dL (12.0-16.0); LYMPHOCYTE% 14.3 % (17.0-45.0); MEAN CELL VOLUME 84.4 FL (83-96); MEAN CORPUSCULAR HEMOGLOBIN 27.5 PG (28-34); MEAN CORPUSCULAR HGB CONC 32.6 g/dL (30-36); MEAN PLATELET VOLUME 9.9 FL (6.5-11.5); MONOCYTE# 0.3 X10e3 (0-1.0); MONOCYTE% 4.1 % (3.0-12.0); NEUTROPHIL# 5.5 X10e3 (1.5-7.1); NEUTROPHIL% 81.5 % (40-75); PLATELET COUNT 219 X10e3 (140-420); RED BLOOD COUNT 3.66 X10e (3.90-5.30); RED CELL DISTRIBUTION WIDTH 14.8 % (11.0-15.5); WHITE BLOOD COUNT 6.8 X10e3 (4.0-10.5)
[2016-07-09 05:56] LABS: DIFF IND NO
[2016-07-09 06:34] LABS: ALBUMIN SERUM 3.4 g/dL (3.5-5.0); BILIRUBIN,TOTAL 0.5 mg/dL (0.2-2.0); BUN/CREATININE RATIO 26.95; CALCIUM SERUM 7.9 mg/dL (8.4-10.2); CREATININE SERUM 2.3 mg/dL (0.6-1.4); POTASSIUM 4.2 mmol/L (3.5-5.1); PROTEIN TOTAL SERUM 6.9 g/dL (6.0-8.3)
[2016-07-09 23:35] LABS: HA AB IGM (HEPPAN) Nonreactive (()); HB CORE AB IGM (HEPPAN) Nonreactive (Nonreactive); HB S AG (HEPPAN) Nonreactive (Nonreactive); HEP C AB (HEPPAN) Nonreactive (Nonreactive); HEP C AB SIGNAL TO CUTOFF 0.03 ratio (<1.00)
[2016-07-10 05:49] LABS: BUN/CREATININE RATIO 30.45; CALCIUM SERUM 8.2 mg/dL (8.4-10.2); CREATININE SERUM 2.2 mg/dL (0.6-1.4); GLOM FILT RATE Estimated 24.3 mL/min (>60); MAGNESIUM 1.8 mg/dL (1.6-3.0); PHOSPHOROUS 4.3 mg/dL (2.5-4.6); POTASSIUM 4.3 mmol/L (3.5-5.1)
[2016-07-11 06:34] LABS: HEMOGLOBIN 9.6 gm/dL (12.0-16.0); MEAN CELL VOLUME 86.1 FL (83-96); MEAN CORPUSCULAR HEMOGLOBIN 27.6 PG (28-34); RED BLOOD COUNT 3.49 X10e (3.90-5.30); RED CELL DISTRIBUTION WIDTH 14.8 % (11.0-15.5)
[2016-07-11 07:16] LABS: BUN/CREATININE RATIO 33.33; CALCIUM SERUM 8.2 mg/dL (8.4-10.2); CREATININE SERUM 2.1 mg/dL (0.6-1.4); GLOM FILT RATE Estimated 25.7 mL/min (>60); MAGNESIUM 1.8 mg/dL (1.6-3.0); POTASSIUM 4.2 mmol/L (3.5-5.1)
[2016-07-12 07:34] LABS: ALBUMIN SERUM 3.3 g/dL (3.5-5.0); BILIRUBIN,TOTAL 0.4 mg/dL (0.2-2.0); CALCIUM SERUM 8.4 mg/dL (8.4-10.2); GLOM FILT RATE Estimated 27.2 mL/min (>60); POTASSIUM 4.5 mmol/L (3.5-5.1); PROTEIN TOTAL SERUM 6.5 g/dL (6.0-8.3)
== END 2016-07-12 22:55 | DRG 602 ==
LOC: CED 23:22 → CEDOF 07-05 05:30 → CED 07-05 05:50 → C2A 07-05 05:50 → CEDOF 07-05 05:50 → C2A 07-05 18:04 → CEDOF 07-05 18:04 → C2A 07-08 21:57
PROVIDERS: Dermatology; Emergency Medicine; Hospitalist; Internal Medicine; Internal Medicine Nephrology; Orthopaedic Surgery
PROC: B24BYZZ Ultrasonography of Heart with Aorta using Other Contrast (ICD-10-PCS; principal; 2016-07-07)
DX: L03.115 Cellulitis of right lower limb (principal); N17.0 Acute kidney failure with tubular necrosis; J44.0 Chronic obstructive pulmonary disease with (acute) lower respiratory infection; F33.2 Major depressive disorder, recurrent severe without psychotic features; J44.1 Chronic obstructive pulmonary disease with (acute) exacerbation; E11.22 Type 2 diabetes mellitus with diabetic chronic kidney disease; E87.5 Hyperkalemia; L03.116 Cellulitis of left lower limb; E78.5 Hyperlipidemia, unspecified; G47.33 Obstructive sleep apnea (adult) (pediatric); L40.9 Psoriasis, unspecified; I25.10 Atherosclerotic heart disease of native coronary artery without angina pectoris; F41.9 Anxiety disorder, unspecified; Z88.6 Allergy status to analgesic agent; Z91.040 Latex allergy status; J20.9 Acute bronchitis, unspecified; M19.90 Unspecified osteoarthritis, unspecified site; G25.81 Restless legs syndrome; N18.3 Chronic kidney disease, stage 3 (moderate); F17.210 Nicotine dependence, cigarettes, uncomplicated; E03.9 Hypothyroidism, unspecified; E66.9 Obesity, unspecified; Z68.34 Body mass index [BMI] 34.0-34.9, adult
CPT/HCPCS: 36415; 51702; 71010; 76770; 80048; 80053; 80074; 80076; 80202; 81003; 82308; 82550; 82553; 82947; 83036; 83735; 83880; 84100; 84132; 84443; 84484; 85025; 85027; 87040; 87086; 89190; 93005; 93306; 93970; 94640; 94760; 96374; 96375; 97110; 97116; 97163; 97166; 97530; 97535; 99285; J0878; J1650; J1815; J1940; J2405; J2543; J2920; J3370

== ENCOUNTER 2016-08-17 19:48 | Emergency (ER) | payer OTHER ==
--- NOTE | ~2016-08-17 | CT52 ---
[facility] A Service of [facility] RADIOLOGY TEXT RESULTS PATIENT: ROSETTE CASTILLO LOCATION: [facility] : 58 UNIT #: [id number] AGE: [address]: Prabhjot Guzman MD SEX: F ORDER DR: [id number] [place] [address] [facility]. [place], [place] [address] [id number] E MR#: [id number] Acc #: [id number] NAME: ROSETTE CASTILLO : 1960 SEX: F STUDY DATE/TIME: 08/17/2016 20:54 UNIT: JE[facility]TE ROOM: STUDY DESCRIPTION: CT Cervical Spine Wo Cont Attending Physician: Prabhjot Guzman M.D. Ordering Physician: Parbhjot Guzman M.D. Primary Care Physician: Frank May M.D. MEDICAL IMAGING REPORT This report is preliminary unless electronic signature is present EXAMINATION CT cervical spine without contrast. DATE 08/17/2016 HISTORY 55-year-old female who fell out of bed and hit her head today with neck pain today. Pain greatest on the right side of head and neck. COMPARISON CT cervical spine without contrast, 09/13/2000. PROCEDURE 2 mm noncontrast axial images through the cervical spine. Sagittal and coronal reformatted images were obtained. This CT exam was performed with one or more of the following radiation dose reduction techniques: automatic exposure control, adjustment of mA and/or kV according to patient size, and iterative reconstruction. FINDINGS Craniocervical junction is intact. No acute cervical spine fracture or subluxation is seen. There is mild diminished disc height at C6-7 with moderate canal stenosis. No high-grade foraminal stenosis is appreciated. Imaged paraspinal soft tissues appear within normal limits. IMPRESSION 1. Moderate canal stenosis at C6-7 due to the presence of posterior disc osteophyte formation. 2. No acute cervical spine fracture or subluxation. Dictated by... [facility] A Service of [facility] RADIOLOGY TEXT RESULTS PATIENT: ROSETTE CASTILLO LOCATION: [facility] : 58 UNIT #: [id number] AGE: [address]: Prabhjot Guzman MD SEX: F ORDER DR: Evelina Pena M.D. THIS IS AN ELECTRONICALLY VERIFIED REPORT Evelina Pena M.D. at 08/18/2016 10:03 AM JOSE/marcial TD: 08/17/2016 23:11 JOB #: [id number] MEDICAL IMAGING REPORT Page 1 of 1 COPY
--- NOTE | ~2016-08-17 | CR151 ---
[facility] A Service of [facility] RADIOLOGY TEXT RESULTS PATIENT: ROSETTE CASTILLO LOCATION: [facility] : 58 UNIT #: [id number] AGE: [address]: Prabhjot Guzman MD SEX: F ORDER DR: [id number] [facility] [address] [facility]. [place], [place] [address] [id number] E MR#: [id number] Acc #: [id number] NAME: ROSETTE CASTILLO : 1960 SEX: F STUDY DATE/TIME: 08/17/2016 21:09 UNIT: JEANETTE ROOM: STUDY DESCRIPTION: CR Hip Min 2 Views Rt Attending Physician: Prabhjot Guzman M.D. Ordering Physician: Prabhjot Guzman M.D. Primary Care Physician: Frank May M.D. MEDICAL IMAGING REPORT This report is preliminary unless electronic signature is present EXAM Right hip series dated 08/17/2016. COMPARISON Right femur series dated 10/04/2015. HISTORY Patient fell 2 days ago with right hip pain. FINDINGS Two views of the right hip were obtained. Vvof-bs-vbbvtvjo arthritic changes of the right hip joint is noted with sclerotic changes in the articulating surface of the glenoid. Mild decrease in joint space is probably present. No acute displaced fracture or dislocation is seen. There is mild, diffuse bony osteopenia. Mild arthritic changes are also in the left hip joint. Degenerative mild changes are in the lumbosacral visualized spine. Vascular calcifications are noted, with bjto-hx-hwneqzjs stool burden in the rectum. Dictated by... Rob Jacobson M.D. THIS IS AN ELECTRONICALLY VERIFIED REPORT Rob Jacobson M.D. at 08/18/2016 2:25 PM CPR/psc TD: 08/17/2016 23:34 JOB #: [id number] MEDICAL IMAGING REPORT [facility] A Service of [facility] RADIOLOGY TEXT RESULTS PATIENT: ROSETTE CASTILLO LOCATION: [facility] : 58 UNIT #: [id number] AGE: [address]: Prabhjot Guzman MD SEX: F ORDER DR: Page 1 of 1 COPY
--- NOTE | ~2016-08-17 | CT71 ---
[facility] A Service of [facility] RADIOLOGY TEXT RESULTS PATIENT: ROSETTE CASTILLO LOCATION: [place] : 58 UNIT #: [id number] AGE: [address]: Prabhjot Guzman MD SEX: F ORDER DR: [id number] [place] [id number] [facility]. [place], [place] [address] [id number] E MR#: [id number] Acc #: [id number] NAME: ROSETTE CASTILLO : 1960 SEX: F STUDY DATE/TIME: 08/17/2016 20:35 UNIT: JEANETTE ROOM: STUDY DESCRIPTION: CT Head Wo Contrast Attending Physician: Prabhjot Guzman M.D. Ordering Physician: Prabhjot Guzman M.D. Primary Care Physician: Frank May M.D. MEDICAL IMAGING REPORT This report is preliminary unless electronic signature is present EXAM CT head without contrast, dated 08/17/2016. COMPARISON STUDIES CT head without contrast, dated 04/26/2014. HISTORY Patient fell out of bed today with headache. It is mainly on the right side. Neck pain also. TECHNIQUE This CT exam was performed with one or more of the following radiation dose reduction techniques: automatic exposure control, adjustment of mA and/or kV according to patient size, and iterative reconstruction. FINDINGS CT of the head was obtained without contrast in the axial plane as per the protocol. Axial noncontrast images were obtained from the skull base to the vertex. Ventricular size and configuration are normal. There is no evidence of acute infarct or hemorrhage. There are no extra-axial fluid collections. No mass lesion or mass effect is seen. There are no skull fractures. Nasal septum is deviated to the right with small nodular mucosal thickening in the right maxillary antrum. IMPRESSION Normal noncontrast head CT. Dictated by... [facility] A Service [facility] RADIOLOGY TEXT RESULTS PATIENT: ROSETTE CASTILLO LOCATION: [facility] : 58 UNIT #: [id number] AGE: [address]: Prabhjot Guzman MD SEX: F ORDER DR: Rob Jacobson M.D. THIS IS AN ELECTRONICALLY VERIFIED REPORT Rob Jacobson M.D. at 08/18/2016 2:26 PM CPR/jt TD: 08/17/2016 23:46 JOB #: [id number] MEDICAL IMAGING REPORT Page 1 of 1 COPY
[~2016-08-17 19:48] MED LIST changes: +NO MEDICATIONS
== END 2016-08-18 | disposition home or self-care (01) ==
LOC: CED 19:48
DX: S06.0X9A Concussion with loss of consciousness of unspecified duration, initial encounter (principal); S70.01XA Contusion of right hip, initial encounter; I10 Essential (primary) hypertension; E11.9 Type 2 diabetes mellitus without complications; F17.200 Nicotine dependence, unspecified, uncomplicated; Z88.6 Allergy status to analgesic agent; Z88.8 Allergy status to other drugs, medicaments and biological substances; Z91.040 Latex allergy status; W06.XXXA Fall from bed, initial encounter; Y92.122 Bedroom in nursing home as the place of occurrence of the external cause
CPT/HCPCS: 70450; 72125; 73502; 99285

== ENCOUNTER → 2016-11-08 | Outpatient (CLI) | payer OTHER ==
--- NOTE | ~2016-11-08 | US136 ---
[facility] A Service of [facility] RADIOLOGY TEXT RESULTS PATIENT: ROSETTE CASTILLO LOCATION: [facility] : 58 UNIT #: [id number] AGE: [address]: Winston Loera MD SEX: F ORDER DR: [id number] [facility] [address] [place], [place] [address] [id number] O MR#: [id number] Acc #: [id number] NAME: ROSETTE CASTILLO : 1960 SEX: F STUDY DATE/TIME: 11/08/2016 14:19 UNIT: [facility] ROOM: STUDY DESCRIPTION: U/L Ext Art Study [facility] Bil Attending Physician: Winston Loera M.D. Referring Physician: Winston Loera M.D. Ordering Physician: Winston Loera M.D. Primary Care Physician: Hung Cabrera M.D. MEDICAL IMAGING REPORT This report is preliminary unless electronic signature is present EXAM Bilateral lower extremity JOY REASON FOR EXAM Peripheral arterial disease. FINDINGS The right brachial pressure is 149, left is 158. Right dorsalis pedis pressure is 129 and posterior tibial 181 for an JOY of 1.15 and a first toe pressure of 86 mmHg. Left dorsalis pedis pressure is 153 mmHg and left is 123 with an JOY of 0.97 and a first toe pressure of 54 mmHg. PVR waveform at the ankle level appeared to be symmetric and intact but slightly integrated bilateral. First digital waveforms are intact in the right first toe and mildly degraded in the left first toe. Arterial waveforms are biphasic at the right dorsalis pedis artery and triphasic at the right posterior tibial artery. There are biphasic waveforms at the left dorsalis pedis and posterior tibial artery. IMPRESSION 1. No arterial insufficiency of the right lower extremity with adequate perfusion of the first toe. 2. Based on JOY no arterial insufficiency of the left lower extremity although waveforms are degraded at both dorsalis pedis and posterior tibial artery questioning the validity of the JOY. There is adequate absolute pressure of the first toe. Dictated by... Jaden Vines M.D. THIS IS AN ELECTRONICALLY VERIFIED REPORT Jaden Vines M.D. at 11/16/2016 9:42 AM [facility] A Service of [facility] RADIOLOGY TEXT RESULTS PATIENT: ROSETTE CASTILLO LOCATION: [facility] : 58 UNIT #: [id number] AGE: [address]: Winston Loera MD SEX: F ORDER DR: SAMMY/iona TD: 11/09/2016 03:11 JOB #: [id number] MEDICAL IMAGING REPORT Page 1 of 1 COPY
[2016-11-08 17:01] LABS: POC - CREATININE 1.51 mg/dL (0.44-1.03)
== END | disposition home or self-care (01) ==
LOC: CCAT 13:34
PROVIDERS: Surgery Vascular Surgery
DX: I73.9 Peripheral vascular disease, unspecified (principal)
CPT/HCPCS: 82565; 93922